=== PATIENT | female | born 1995 | race Caucasian/White ===

== ENCOUNTER → 2017-02-09 | Outpatient (CLI) | payer BC ==
[~2017-02-09] MED LIST: ETONMIS VAGRING; PRENTAB26 PO
== END | disposition home or self-care (01) ==
LOC: C.PAPS 14:33
PROVIDERS: ATTEND Obstetrics & Gynecology
DX: Z01.411 Encounter for gynecological examination (general) (routine) with abnormal findings (principal); R87.612 Low grade squamous intraepithelial lesion on cytologic smear of cervix (LGSIL)

== ENCOUNTER → 2017-02-09 | Outpatient (CLI) | payer BC ==
[2017-02-12 12:10] LABS: CHLAMYDIA TRACH RNA*** NOT DETECTED (NOT DETECTED); GC (NEIS GONORRHOEAE)RNA** NOT DETECTED (NOT DETECTED)
== END | disposition home or self-care (01) ==
LOC: C.LABSPEC 13:46
PROVIDERS: ATTEND Obstetrics & Gynecology
DX: Z01.411 Encounter for gynecological examination (general) (routine) with abnormal findings (principal)

== ENCOUNTER 2017-04-20 18:56 | Emergency (ER) | payer BC ==
[~2017-04-20] VITALS: Ht 160 cm; Wt 61.9 kg
[~2017-04-20 18:56] MED LIST changes: -ETONMIS VAGRING
[2017-04-20 19:02] VITALS: TEMP 36.7; Ht 160 cm; Wt 61.9 kg
[2017-04-20 20:00] VITALS: O2SAT 97
[2017-04-20 20:32] LABS: BASO % 0.1 %; BASO ABS # 0.01 K/uL (0-0.2); COMPLETE YES; EOS % 0.1 %; HEMATOCRIT 38.2 % (37-47); IG% 0.2 %; LYMPH % 25.6 %; LYMPH ABS # 2.63 K/uL (1.2-3.4); MEAN CELL VOLUME 88.6 fL (80-100); MEAN CORPUSCULAR HEMOGLOBIN 31.3 pg (25-34); MEAN CORPUSCULAR HGB CONC 35.3 g/dl (32-36); MEAN PLATELET VOLUME 9.9 fL (7.4-10.4); MONO % 5.4 %; NEUT % 68.6 %; PLATELET COUNT 214 K/uL (130-400); RED BLOOD COUNT 4.31 M/uL (4.2-5.4); WHITE BLOOD COUNT 10.29 K/uL (4.8-10.8)
[2017-04-20 20:52] LABS: BLOOD UREA NITROGEN 11 mg/dl (7-18); BUN/CREATININE RATIO 13.8 (10-20); CALCIUM 9.3 mg/dl (8.5-10.1); CARBON DIOXIDE 24 mmol/L (21-32); CHLORIDE 108 mmol/L (98-107); CREATININE 0.79 mg/dl (0.60-1.20); GLUCOSE 85 mg/dl (70-99); POTASSIUM 3.5 mmol/L (3.5-5.1); SODIUM 141 mmol/L (136-145)
[2017-04-20] MEDS ORDERED: ETONMIS VAGRING (20:54)
--- NOTE | 2017-04-20 20:56 | DIAGNOSTIC IMAGING REPORT ---
CHEST ONE VIEW PORTABLE HISTORY: 21 years-old Female acute Fever/Sepsis COMPARISON: None available TECHNIQUE: Portable upright AP view of the chest FINDINGS: The cardiomediastinal and hilar silhouettes are within normal limits. No pneumothorax, pleural effusion, focal airspace consolidation or overt pulmonary edema. Bones appear grossly intact. IMPRESSION: Normal chest radiograph without focal airspace consolidation to suggest pneumonia. The above report was generated using voice recognition software. It may contain grammatical, syntax or spelling errors. Electronically signed by: Camilo Crowe M.D. 04/20/2017 8:55 PM Dictated Date/Time: 04/20/2017 8:54 PM
--- NOTE | 2017-04-20 21:24 | EMERGENCY ROOM VISIT NOTE ---
History Report prepared by Edenilson: Christopher Billings Under the Supervision of: Dr. Matthew Lewis D.O. First contact with patient: 19:50 Chief Complaint: CHEST PAIN Stated Complaint: CHEST PAIN, POUNDING HEART Nursing Triage Summary: "I had mild chest pain while driving home from work. I felt like it was hard to breath and like my heart was racing. I actually feel way better right now." History of Present Illness The patient is a 21 year old female who presents to the Emergency Room with complaints of resolved chest pain that occurred a couple hours ago. The patient was on her way home from work, driving in her car. Suddenly, she began to feel heart palpitations and chest tightness. She denies any shortness of breath at that time. She states that she feels much better currently. When she was feeling this way, it lasted for about 2 hours. Her last menstrual period was 1 week ago. She notes that this has happened before, usually every day after she leaves work. Source of History: patient Onset: a couple hours ago Position: chest Symptom Intensity: mild Quality: other (Tightness) Timing: resolved Associated Symptoms: No SOB Note: She was experiencing palpitations. Review of Systems See HPI for pertinent positives & negatives. A total of 10 systems reviewed and were otherwise negative. Past Medical & Surgical Medical Problems: (1) Breech presentation (2) Cephalic version (3) No Known Active Medical Problems Family History Cancer Diabetes mellitus Heart disease Hypertension Kidney stones Social History Smoking Status: Never Smoker Smokeless Tobacco Use: No Drug Use: none Marital Status: single Housing Status: lives with family Occupation Status: student Current/Historical Medications Scheduled Etonogestrel/Ethinyl Estradiol (Nuvaring), 1 EA VAGRING MONTHLY Allergies Coded Allergies: Azithromycin (Verified Allergy, Mild, ., 07/16/15) Sulfa Antibiotics (Verified Allergy, Mild, HIVES, 07/16/15) Physical Exam Vital Signs Date Time Temp Pulse Resp B/P (MAP) Pulse Ox O2 Delivery O2 Flow Rate FiO2 04/20/17 21:33 73 18 128/72 95 04/20/17 20:27 67 22 138/81 98 Room Air 04/20/17 20:00 97 Room Air 04/20/17 19:59 74 04/20/17 19:02 36.7 90 18 146/84 99 Room Air Physical Exam CONSTITUTIONAL/VITAL SIGNS: Reviewed / noted above. GENERAL: Non-toxic in appearance. INTEGUMENTARY: Warm, dry, and [place]. HEAD: Normocephalic. EYES: without scleral icterus or trauma. ENT/OROPHARYNX: clear and moist. LYMPHADENOPATHY/NECK: Is supple without lymphadenopathy or meningismus. RESPIRATORY: Lungs clear and equal. CARDIOVASCULAR: Regular rate and rhythm. GI/ABDOMEN: Soft and nontender. No organomegaly or pulsatile mass. No rebound or guarding. Normal bowel sounds. EXTREMITIES: Warm and well perfused. BACK: No CVA tenderness. NEUROLOGICAL: Intact without focal deficits. PSYCHIATRIC: normal affect. MUSCULOSKELETAL: Normally developed with good muscle tone. Medical Decision & Procedures ER Provider Diagnostic Interpretation: Radiology results as stated below per my review and radiologist interpretation: CHEST ONE VIEW PORTABLE HISTORY: 21 years-old Female acute Fever/Sepsis COMPARISON: None available TECHNIQUE: Portable upright AP view of the chest FINDINGS: The cardiomediastinal and hilar silhouettes are within normal limits. No pneumothorax, pleural effusion, focal airspace consolidation or overt pulmonary edema. Bones appear grossly intact. IMPRESSION: Normal chest radiograph without focal airspace consolidation to suggest pneumonia. The above report was generated using voice recognition software. It may contain grammatical, syntax or spelling errors. Electronically signed by: Camilo Crowe M.D. 04/20/2017 8:55 PM Dictated Date/Time: 04/20/2017 8:54 PM Laboratory Results 04/20/17 20:20 Red Blood Count 4.31, Mean Corpuscular Volume 88.6, Mean Corpuscular Hemoglobin 31.3, Mean Corpuscular Hemoglobin Concent 35.3, Mean Platelet Volume 9.9, Neutrophils (%) (Auto) 68.6, Lymphocytes (%) (Auto) 25.6, Monocytes (%) (Auto) 5.4, Eosinophils (%) (Auto) 0.1, Basophils (%) (Auto) 0.1, Neutrophils # (Auto) 7.06, Lymphocytes # (Auto) 2.63, Monocytes # (Auto) 0.56, Eosinophils # (Auto) 0.01, Basophils # (Auto) 0.01 04/20/17 20:20 Test 04/20/17 20:20 White Blood Count 10.29 K/uL (4.8-10.8) Red Blood Count 4.31 M/uL (4.2-5.4) Hemoglobin 13.5 g/dL (12.0-16.0) Hematocrit 38.2 % (37-47) Mean Corpuscular Volume 88.6 fL (80-100) Mean Corpuscular Hemoglobin 31.3 pg (25-34) Mean Corpuscular Hemoglobin Concent 35.3 g/dl (32-36) Platelet Count 214 K/uL (130-400) Mean Platelet Volume 9.9 fL (7.4-10.4) Neutrophils (%) (Auto) 68.6 % Lymphocytes (%) (Auto) 25.6 % Monocytes (%) (Auto) 5.4 % Eosinophils (%) (Auto) 0.1 % Basophils (%) (Auto) 0.1 % Neutrophils # (Auto) 7.06 K/uL (1.4-6.5) Lymphocytes # (Auto) 2.63 K/uL (1.2-3.4) Monocytes # (Auto) 0.56 K/uL (0.11-0.59) Eosinophils # (Auto) 0.01 K/uL (0-0.5) Basophils # (Auto) 0.01 K/uL (0-0.2) RDW Standard Deviation 37.9 fL (36.4-46.3) RDW Coefficient of Variation 11.7 % (11.5-14.5) Immature Granulocyte % (Auto) 0.2 % Immature Granulocyte # (Auto) 0.02 K/uL (0.00-0.02) Anion Gap 9.0 mmol/L (3-11) Est Creatinine Clear Calc Drug Dose 93.1 ml/min Estimated GFR () 124.0 Estimated GFR (Non- 107.0 BUN/Creatinine Ratio 13.8 (10-20) Calcium Level 9.3 mg/dl (8.5-10.1) Troponin I < 0.015 ng/ml (0-0.045) Thyroid Stimulating Hormone (TSH) 2.100 uIu/ml (0.300-4.500) Laboratory results as stated above per my review. ECG Indication: palpitations Rate (beats per minute): 78 Rhythm: normal sinus Findings: no acute ischemic change, no ectopy ED Course 1950: Previous medical records were reviewed. The patient was evaluated in room C2. A complete history and physical examination was performed. 2128: On reevaluation, the patient is resting. I discussed the results and findings with the patient. She verbalized agreement of the treatment plan. She was discharged home. Medical Decision Differentials considered include acute myocardial infarction, acute coronary syndrome, myocarditis, pericarditis, pericardial effusions /tamponade, esophageal perforation, thoracic aortic dissection, pulmonary embolism, pneumonia, pneumothorax, pancreatitis, shingles, acute cholecystitis, and perforated abdominal viscus. This is a 21-year-old female who presents to the ED with a chief complaint of palpitations or strong heartbeat. This occurred while she was driving home from work about 3 hours ago. It lasted from 2-3 hours. She denied any associated shortness of breath, fevers or other symptoms. Last menstrual periods last week. She reports prior episodes of this usually following work. Her vital signs are stable. Physical exam was normal. CBC, PRP, troponin, chest x-ray were negative for acute disease. EKG showed normal sinus rhythm without ectopy or acute injury. The patient was told the results. She is felt to be stable for discharge. I did recommend follow-up with PCP for event monitoring. Medication Reconcilliation Current Medication List: was personally reviewed by me Blood Pressure Screening Patient's blood pressure: Elevated blood pressure Blood pressure disposition: Elevated BP felt to be situational Impression Primary Impression: Palpitations Scribe Attestation The scribe's documentation has been prepared under my direction and personally reviewed by me in its entirety. I confirm that the note above accurately reflects all work, treatment, procedures, and medical decision making performed by me. Departure Information Dispostion Home / Self-Care Referrals No Doctor, Assigned (PCP) Forms HOME CARE DOCUMENTATION FORM, IMPORTANT VISIT INFORMATION Patient Instructions Heart Palpitations, My [facility] Advanced Telemetry Additional Instructions Follow-up with your doctor for further evaluation of your symptoms.
[2017-04-20 21:33] VITALS: BP 128/72; PULSE 73; O2SAT 95
== END 2017-04-20 21:23 | disposition home or self-care (01) ==
LOC: C.EDB 18:57 → C.EDC 21:23
DX: R00.2 Palpitations (principal); Z80.9 Family history of malignant neoplasm, unspecified; Z83.3 Family history of diabetes mellitus; Z82.49 Family history of ischemic heart disease and other diseases of the circulatory system; Z84.1 Family history of disorders of kidney and ureter

== ENCOUNTER → 2017-04-23 | Outpatient (CLI) | payer BC ==
[~2017-04-23] MED LIST changes: +ETONMIS VAGRING; -PRENTAB26 PO
== END | disposition home or self-care (01) ==
LOC: C.PATHSPEC 13:19
PROVIDERS: ATTEND Obstetrics & Gynecology
DX: R87.612 Low grade squamous intraepithelial lesion on cytologic smear of cervix (LGSIL) (principal)

== ENCOUNTER → 2017-11-07 | Outpatient (CLI) | payer BC | END | disposition home or self-care (01) | LOC: C.PAPS 11:15 | PROVIDERS: ATTEND Obstetrics & Gynecology | DX: R87.610 Atypical squamous cells of undetermined significance on cytologic smear of cervix (ASC-US) (principal) ==